=== PATIENT | male | born 1960 | race Caucasian/White ===

== ENCOUNTER 2017-03-11 14:55 | Inpatient (IN) | payer MEDICARE, MEDICAID ==
[~2017-03-11] VITALS: Ht 187.9 cm; Wt 75.7 kg
--- NOTE | ~2017-03-11 | PR ---
[place], [place] PROGRESS NOTE NAME: BELIA LANG UNIT #: [id number] ROOM: 316 DOCTOR: ADAN LOOMIS BIRTHDATE: [birth year] DOS: 03/16/2017 SUMMARY OF VISIT: The patient was quiet. I believe he is being passive, aggressive. Right now, he is mad about having to take medication through his PEG tube. He is not talking to the nurses or anybody. My concern yesterday was I wanted to hold off adjusting the Geodon down. He was a little bit sedated per nursing a couple days ago when it was started, but he is not now. The 80 mg b.i.d. is appropriate. At this point in time because he is a little bit irritable, I am wondering if he is acclimated to the meds that may need to be bumped up even ____ more. MENTAL STATUS: Alert and oriented to person, place, I do not think time. Mood: He is angry, again it comes back to that whole PEG tube think, not aggressive, not anxious just kind of mad. PLAN: I am going to leave the Geodon as is for now. With his behaviors, we will continue to try to redirect. We allow him to be a little passive aggressive and quiet and with the SILO treatment for now, but I did advise him ____ room, interacting a little bit more later on today. We will see how he does and we will go from there. SANJUANA LOOMIS CNP CM:PNTRANS [id number] ADAN LOOMIS 03/16/17 1109 interface
--- NOTE | ~2017-03-11 | WRIGHTHP ---
[place], [place] PATIENT HISTORY AND PHYSICAL EXAM [id number] UNIT #: [id number] ROOM: 316 DOCTOR: REBECCA ZULETA MD BIRTHDATE: [birth year] DOS: 03/12/2017 CHIEF COMPLAINT: "I need this ___." HISTORY OF PRESENT ILLNESS: This is a 56-year-old white male who is well known to me from his stay at [facility]. The patient apparently has been increasingly more depressed and despondent. He is very upset about his PEG tube placement and has vehemently wanted that PEG tube out. Most recently, he has voiced threats of self-harm stating that he will find some way to kill himself. He has threatened to hang himself or to stockpile medications at the senior care and overdose. He has not been sleeping well. He has been refusing ADLs. He has become increasingly more agitated and combative while at the senior care. [facility] staff feared for his safety and the safety of others, so they did suggest inpatient evaluation to rule out any organic factors to stabilize on medication, returning back to [facility] when stable. 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 MENTAL STATUS: The patient is alert and oriented with time gaps. Mood does seem to be depressed. Affect is somewhat flat, blunted. He is very difficult to understand because of the dysphasia, but he does take the time to try to enunciate his words. He is very much fixated on his PEG tube placement and it is hard to get him to answer other questions. There is no hypomania or matilde present and does not seem to be any auditory or visual hallucinations. There is no paranoia or delusions voiced. Short term memory has gaps, otherwise he is intact. DIAGNOSIS: Major depression, recurrent, severe. PLAN: I have already started him on Trintellix 10 mg at bedtime. While at the senior care, I have discontinued his Zyprexa, which could be contributing to some of his swallow difficulties and started him on Depakote. His Depakote level was subtherapeutic in the 40s. We will go ahead and increase from 500 mg twice a day to 500 mg 3 times a day to decrease some of his impulsivity and mood lability. We will engage him in individual and hodges milieu activity. We will also attempt to repeat the swallow eval and determine what if anything could be done to impact positively on this situation. We will plan ultimately to return him back to [facility] when psychiatrically stable. [place], [place] PATIENT HISTORY AND PHYSICAL EXAM NAME: BELIA LANG UNIT #: [id number] ROOM: [facility] DOCTOR: REBECCA ZULETA MD BIRTHDATE: [birth year] REBECCA ZULETA MD CM:HISPHYS:PATIENT HISTORY AND PHYSICAL EXAMINATION [id number] REBECCA ZULETA MD 03/12/17 0951 interface
--- NOTE | ~2017-03-11 | CON ---
[place], [place] REPORT OF CONSULTATION NAME: BELIA LANG UNIT #: [id number] ROOM: 316 DOCTOR: AISSATOU LANGFORD ED.D (LORENZO) BIRTHDATE: [birth year] DOS: 03/13/2017 HISTORY OF PRESENT ILLNESS: The patient is a 56-year-old male referred by Dr. Zuleta for competency evaluation. At the present time, this patient is on the Senior Behavioral Health Unit at [facility] I was unable to obtain much social information or past history on this patient. Out of the fact, he has been living at [facility] in [place], [place]. He was sent here because he was threatening to kill himself by overdose. He did not really talk to me at this time, although he had recently been administered Geodon. I did contact ____ at the care home, and she indicated the patient was angry and uncooperative, but that he was very lucid. ____ BIMS. His mental status examination score was 15/15, which is very good. Unfortunately, at this time, I cannot say whether he is competent or not due to the fact he is recently medicated and is not really communicative. He had been refusing his medications on the Behavioral Health Unit. I did discuss this at length with Dr. Zuleta, and they will continue to monitor him and once he is alert and oriented, again I will reevaluate him for competency. His medical history is pertinent for atrial fibrillation, CVA with hemiparesis and aphasia, major depressive disorder, recurrent atrial fibrillation, benign prostate hypertrophy, and psoriasis. He is presently on Lipitor and Trintellix on the Behavioral Health Unit. RECOMMENDATIONS: I will reevaluate this patient once he is more lucid. DIAGNOSIS: Major depressive disorder, recurrent. Thank you very much for this consult. AISSATOU LANGFORD ED.D CM:CONSTR:REPORT OF CONSULTATION 1255 03/14/17 0309 interface REBECCA ZULETA MD
--- NOTE | ~2017-03-11 | PR ---
[place], [place] PROGRESS NOTE NAME: BELIA LANG UNIT #: [id number] ROOM: 316 DOCTOR: ADAN LOOMIS BIRTHDATE: [birth year] DOS: 03/15/2017 CHIEF COMPLAINT: "Good morning." SUMMARY OF VISIT: The patient assessed outside in the hallway and then in his room. The patient was observed talking on the phone in a calm manner. Nursing has noticed there has been a significant change in his behaviors for the benefit since p.o. Geodon was started. They were concerned with a little bit of sedation yesterday, but I am not seen any this morning. He is currently receiving 80 mg b.i.d. MENTAL STATUS: Alert and oriented to person, place, I do not think time. The patient's mood is still a little depressed, but the agitation and aggression seem to be weaning away. PLAN: I am going to leave the Geodon where it is right now. Let see how he does over the next 24 hours. If the nurses note any sedation throughout the afternoon, I will look at decreasing the Geodon, but right now, it looks like his body is accommodating it and doing quite well. SANJUANA LOOMIS CNP CM:PNTRANS [id number] ADAN LOOMIS 03/15/17 1235 interface
--- NOTE | ~2017-03-11 | DS ---
[place], [place] DISCHARGE SUMMARY [id number] UNIT #: [id number] ROOM: 316 DOCTOR: REBECCA ZULETA MD BIRTHDATE: [birth year] DOS: 03/17/2017 CHIEF COMPLAINT: "I need this tube out now." HISTORY OF PRESENT ILLNESS: This is a 56-year-old white male who is well known to me from his stay at [facility]. The patient has apparently become increasingly more depressed and despondent. He is very upset that he has a PEG tube in and vehemently wants the PEG tube out. He unfortunately has repeatedly failed swallow evaluations making the PEG tube a necessity. Most recently while at [facility], he has voiced threats of self harm, stating that he will find some way to kill himself. He has threatened to hang himself or stockpile medications at the intermediate and then attempt to overdose. This coupled with the fact that he has not been sleeping well, he has been refusing ADLs and becoming increasingly more agitated and combative, it was felt that an inpatient stabilization would be warranted at this point in time. PAST MEDICAL HISTORY: Remarkable for history of atrial fibrillation, benign prostatic hypertrophy, CVA with residual dysphasia, depression, hand deformity, hyperlipidemia, psoriasis and seizure disorder. SUMMARY OF HOSPITAL COURSE: The patient was started on Trintellix 10 mg at bedtime as an antidepressant that would give energy, decrease anxiety and not stimulate appetite. He was attempted to be maintained on Depakote; however, the Depakene was bothering his stomach and not significantly affecting his mood lability well. At one point in time, he became so agitated. He required an intermuscular injection of Geodon, which had a substantial and significant effect on him. Shortly after receiving the intramuscular injection of Geodon, the patient became much more pleasant and cooperative and was engaging in reasonable normal conversation. Given his dramatic and significant improvement with the Geodon, he was started immediately on Geodon 80 mg twice daily with excellent results. Following the initiation of the Geodon on a regular basis, the patient's mood showed significant improvement. Sleep normalized, energy improved. He was able to engage in pleasant conversation. Even when he had to be redirected, he was able to self redirect reasonably well without agitation. The patient exhibited no side effects from the Geodon. There was no sedation, somnolence, extrapyramidal symptoms or tardive dyskinesia. The patient had improved sufficiently by 03/17/2017 to return back to [facility]. In fact he voiced a readiness to return back and voiced no further suicidal ideation. MENTAL STATUS AT DISCHARGE: The patient was alert and oriented to person, place and very approximate to time. Mood was strongly trending towards euthymia and affect was much more appropriate. There is no symptom suggestive of hypomania or matilde. Likewise, there was no overt auditory or visual hallucinations noted. No paranoia was present. No delusions were present. Short term memory had mild gaps, but overall he was fairly well intact. FINAL DIAGNOSES: Major depression, recurrent with psychotic features. PLAN: All of his prescriptions have been renewed and will be sent with him in [place], [place] DISCHARGE SUMMARY NAME: BELIA LANG UNIT #: [id number] ROOM: 316 DOCTOR: REBECCA ZULETA MD BIRTHDATE: [birth year] hard copy I will follow him upon his return to [facility]. REBECCA ZULETA MD CM:MYKEL [id number] REBECCA ZULETA MD 03/17/17 0857 interface
--- NOTE | ~2017-03-11 | PN ---
[place], [place] PROGRESS NOTE [id number] UNIT #: [id number] ROOM: 316 DOCTOR: REBECCA ZULETA MD BIRTHDATE: [birth year] DATE: 03/14/17 CHIEF COMPLAINT: "Good morning, you working today." SUMMARY OF THE VISIT: The patient was interviewed in the hallway, where he sat. As I approached him, he greeted me with a good morning and then engaged me asking me if I was working today or if I was off. He continues to be fixated on his ability to swallow and has a hard time varying off of this fixation. He was, however, much more pleasant than he was yesterday and much more engaging without the agitation. Nurses report that he became very agitated yesterday and required p.r.n. intervention with the Geodon 20 mg IM. Afterwards, however, he became much more compliant, much more pleasant and much more engaging. This seems to have carried over into the morning as his behavior has dramatically improved. MENTAL STATUS: He is alert and oriented to person, place, but not necessarily time. Mood this morning is more euthymic. Affect is much more appropriate. There are no symptoms of hypomania or matilde. There are no overt auditory or visual hallucinations noted. Memory does have some gaps. PLAN: Given the fact that he tolerated the 20 mg of Geodon IM well. I will go ahead and order Geodon 80 mg twice daily. I will subsequently increase his Cogentin from 0.5 mg 3 times a day to 1 mg twice daily to see if this helps with some of his swallowing. I will discontinue the Depakote as with the Geodon on board, he will not need the Depakote and this will lessen the amount of medicines being put through his PEG tube. He did have a swallow eval done yesterday, which he did not do well on. We will continue to monitor him for this and may try to repeat this later in his stay to see if he can pass it. We will engage him in individual and hodges milieu activity with the plan then to return to [facility] when stable. REBECCA ZULETA MD CM:PNTRANS [id number] REBECCA ZULETA MD 03/17/17 1419 MOHAN QUINN MIS.R
--- NOTE | ~2017-03-11 | PR ---
[place], [place] PROGRESS NOTE NAME: BELIA LANG UNIT #: [id number] ROOM: 316 DOCTOR: ADAN LOOMIS BIRTHDATE: [birth year] DOS: 03/13/2017 SUMMARY OF VISIT: The patient was assessed outside the nurses' station. He is very agitated. Nursing states that he is refusing all meds, all care, making a list of food that he wants even though he has his PEG tube in his belly. He does not remember speaking to Dr. Montgomery yesterday and the first thing he said is I want to speak to that man, I have not seen him. This patient has been followed at ____ by Dr. Montgomery with lengthy conversations and I was in the room yesterday when Dr. Montgomery and the other nurse practitioner were assessing him, so significantly poor memory, very confrontational really wants the tube out. He would not talk to me about it. I advised him that I really needed him to take his medication so that we could then get a barium swallow on him, he was not cooperative. MENTAL STATUS: He is alert and oriented to person, place, I do not know about time. Very agitated, aggressive verbally, noncompliant. PLAN: Discussed with Dr. Montgomery ____ order consult with Dr. Pino I am not sure that the patient is completely ____ there may be some dementia or significant memory gaps going on. I am going to go ahead and order a modified barium swallow and see how he does with that. I am not going to change any medication at this point in time, I have encouraged the nurses the best they can to try to encourage him to take his meds and we will go from there after we get the consult from Dr. Pino and modified barium swallow. SANJUANA LOOMIS CNP CM:PNTRANS [phone] ADAN LOOMIS 03/13/17 1113 interface
--- NOTE | ~2017-03-11 | PROC NOTE ---
[place], [place] PROCEDURE NOTE NAME: [facility]ANG [id number] UNIT #: [id number] ROOM: 316 DOCTOR: SUHAS OCHOA BIRTHDATE: [birth year] DOS: MODIFIED BARIUM SWALLOW PAST MEDICAL HISTORY: The patient is an inpatient with suicidal ideation admission onto the mental health unit with a history of CVA in January 2017. He has a PEG tube it is reported he has repeated failed multiple modified barium swallow studies; however physician wanted to complete 1 today because the patient is very adamant about eating. The patient has poor cognition and poor ability to maintain a topic of conversation and follow even the most simplest directions. METHODS AND MATERIALS: The patient was in a wheelchair. He was viewed in the lateral plane. The study was done in conjunction with Dr. Gurrola. The patient was able to hold a cup and take a drink. He was administered applesauce mixed with barium paste off a teaspoon in a half teaspoon amount. He was administered nectar thick liquid off a teaspoon and nectar thick liquid out of the cup and thin liquid out of the cup. ORAL PHASE: Mild to moderate reduced bolus cohesion and formation for applesauce and nectar liquids, moderate to severely reduced cohesion and formation and control from the oral phase to pharyngeal phase of thin liquid which fell into the pharynx with limited control. A solid was not administered as patient had poor cognition and he was edentulous with limited ability to follow commands. PHARYNGEAL PHASE: The patient demonstrated [id number] reduced laryngeal elevation in conjunction. The patient demonstrated [id number] residue in the vallecula and pyriform sinuses on applesauce. He was cued many times to take dry hard swallows which he did, but he was only able to clear a minimal amount and the residue remained in a moderate amount. He was given nectar liquid off a teaspoon with penetration I did clear, but it was a moderate amount and it was suspected on the residue. The patient was then given a sip of thin liquid via cup in which he immediately aspirated a moderate amount with minimal response of throat clear. The patient was then given nectar thick liquid via cup in which he demonstrated the penetration which did not clear which had eventually fall into the level of the vocal folds and suspected to be aspiration. The patient was unable to clear pharyngeal residue. He was unable to follow commands even to trial strategies such as a chin tuck. The study was terminated. He was not administered solid due to above the fact that he is edentulous and reduced in cognition. RECOMMENDATIONS AND IMPRESSIONS: Based on the above, the patient presents with moderate and severe pharyngeal dysphagia. He is not a candidate for p.o. intake at this time. He has a poor prognosis to improve with therapy as he is unable to follow commands for dysphagia therapy. It is recommended he continue with nonoral nutrition and hydration and he does have a PEG tube in place. Thank you for this referral. [place], [place] PROCEDURE NOTE NAME: BELIA LANG UNIT #: [id number] ROOM: [facility] DOCTOR: SUHAS OCHOA BIRTHDATE: [birth year] SUHAS OCHOA CM:PROCNOTE:PROCEDURE NOTE 0950 [id number] SUHAS OCHOA
[2017-03-11] MEDS ORDERED: ATORVASTATIN CA80 M1 PEG (16:00)
[2017-03-11] MEDS ORDERED: CARDIZEM60 MG PEG (16:02)
[2017-03-11] MEDS ORDERED: ELIQUIS5 M1 PEG (16:02)
[2017-03-11] MEDS ORDERED: VITAMIN B150 MG PEG (16:03)
[2017-03-11] MEDS ORDERED: KETOCONAZOLE S120 M1 TP (16:04)
[2017-03-11] MEDS ORDERED: DEPAKOTE SPRIN125 MG PEG (16:05)
[2017-03-11] MEDS ORDERED: ANUSOL-HC25 MG R (16:06)
[2017-03-11] MEDS ORDERED: ACETAMINOP160 MG/10 PEG (16:14)
[2017-03-11 17:06] VITALS: BP 156/92
[2017-03-11 19:39] LABS: HEMATOCRIT 53.1 % (42.0-52.0); HEMOGLOBIN 18.2 g/dl (14.0-18.0); MEAN CELL VOLUME 114.4 fl (80.0-94.0); MEAN CORPUSCULAR HGB 39.2 pg (27.0-31.0); MEAN CORPUSCULAR HGB CONC 34.3 g/dl (33.0-37.0); MEAN PLATELET VOLUME 11.3 fl (9.6-12.3); PLATELET COUNT AUTOMATED 265 10*3/uL (130-400); RED BLOOD COUNT 4.64 10*6/uL (4.50-5.90); WHITE BLOOD COUNT 15.8 10*3/uL (4.8-10.8)
[2017-03-11 20:00] VITALS: BP 139/97
[2017-03-11 20:00] LABS: ALBUMIN 3.8 gm/dl (3.1-4.5); ALKALINE PHOSPHATASE 75 U/L (45-117); BILIRUBIN, TOTAL 1.6 mg/dl (0.2-1.0); BUN 37 mg/dl (7-24); CARBON DIOXIDE 32 mmol/L (21-32); CHLORIDE 99 mmol/L (98-107); CHOLESTEROL 119 mg/dL (<200); EST GLOM FILT AFRICAN AMERICAN > 60 ml/min; GLUCOSE 105 mg/dL (65-99); HDL CHOLESTEROL 38 mg/dl (40-60); LDL CHOLESTEROL 58 mg/dL (9-159); SGOT/AST 37 IU/L (3-35); SGPT/ALT 37 U/L (12-78); SODIUM 144 mmol/L (136-145); TOTAL PROTEIN 8.8 gm/dL (6.4-8.2); TRIGLYCERIDES 114 mg/dl (<150); VLDL CHOLESTEROL 23 mg/dL (6-40)
[2017-03-11 20:07] LABS: BASOPHIL # 0.2 10*3/uL (0-0.1); BASOPHILS 1 % (0-1); EOSINOPHIL # 0.3 10*3/uL (0-0.4); EOSINOPHILS 2 % (1-4); LYMPHOCYTE # 1.1 10*3/uL (1.3-4.4); MONOCYTE # 1.7 10*3/uL (0.1-1.0); NEUTROPHIL # 12.5 10*3/uL (2.3-7.9); NEUTROPHILS 79 % (47-73); PLATELET SUFFICIENCY NORMAL (NORMAL); TOTAL CELLS COUNTED 100 #CELLS
[2017-03-11 20:10] LABS: HYPOCHROMIA MODERATE
[2017-03-11 20:30] LABS: VITAMIN D, 25-HYDROXY 27.2 ng/mL (30-100)
[2017-03-11 20:32] LABS: FOLIC ACID > 24.00 ng/mL (>5.38)
[2017-03-12 07:56] VITALS: BP 119/74
[2017-03-13 08:12] LABS: RHEUMATOID ARTHRITIS FACTOR <10.0 IU/mL (0.0-13.9)
[2017-03-13 20:00] VITALS: BP 149/86
[2017-03-14 08:00] VITALS: BP 137/83
[2017-03-14 20:00] VITALS: BP 143/83
[2017-03-15 07:38] VITALS: BP 139/82
[2017-03-15 21:43] LABS: BILIRUBIN NEGATIVE (NEGATIVE); BLOOD NEGATIVE (NEGATIVE); CLARITY CLEAR (CLEAR); COLOR YELLOW (YELLOW); GLUCOSE NEGATIVE (NEGATIVE); KETONE NEGATIVE (NEGATIVE); LEUKO ESTERASE TRACE (NEGATIVE); NITRITE NEGATIVE (NEGATIVE); PROTEIN NEGATIVE (NEGATIVE); UROBILINOGEN 0.2 E.U./dl (0.2-1.0)
[2017-03-15 21:47] VITALS: BP 136/86
[2017-03-15 21:50] LABS: MUCOUS TRACE; URINE REFLEX COMMENT YES (NO)
[2017-03-16 08:11] VITALS: BP 100/68
[2017-03-16 20:00] VITALS: BP 130/98
[2017-03-17 08:00] VITALS: BP 122/72
[2017-03-17] MEDS ORDERED: BENZTROPINE MESY1 MG PEG (08:30)
[2017-03-17] MEDS ORDERED: BRIN10TA PEG (08:30)
[2017-03-17] MEDS ORDERED: ZIPRASIDONE HCL80 M1 PO (08:30)
== END 2017-03-17 14:15 | disposition other institution (70) | DRG 885 ==
LOC: 3N 14:55
PROVIDERS: Psychiatry & Neurology Psychiatry
PROC: BD1BYZZ Fluoroscopy of Mouth/Oropharynx using Other Contrast (ICD-10-PCS; principal; 2017-03-11)
DX: F33.3 Major depressive disorder, recurrent, severe with psychotic symptoms (principal); R65.10 Systemic inflammatory response syndrome (SIRS) of non-infectious origin without acute organ dysfunction; E67.8 Other specified hyperalimentation; I48.2 Chronic atrial fibrillation; I69.951 Hemiplegia and hemiparesis following unspecified cerebrovascular disease affecting right dominant side; G40.909 Epilepsy, unspecified, not intractable, without status epilepticus; Z93.1 Gastrostomy status; L40.9 Psoriasis, unspecified; E78.5 Hyperlipidemia, unspecified; D72.825 Bandemia; R73.9 Hyperglycemia, unspecified; Z88.8 Allergy status to other drugs, medicaments and biological substances; Z79.899 Other long term (current) drug therapy